=== PATIENT | female | born 1980 | race Caucasian/White ===

== ENCOUNTER 2017-01-12 14:48 | Emergency (ER) | payer OTHER ==
[2017-01-12 15:38] VITALS: BP 111/73
--- NOTE | 2017-01-12 16:20 | UC ---
Back Pain HPI - HPI Summary HPI Summary: tailbone pain which occurred after having a constipated BM which she had to dig out with her finger. Pain has worsened as days go by. Had some bright red blood streaked on paper yesterday, less today. No blood on underwear. Painful to sit, get up from chair, sit down. Has a history of anal fissure, feels like that's where blood is coming from now, but the tailbone pain is separate from the fissure discomfort. - History of Current Complaint Chief Complaint: UCGeneralIllness Stated Complaint: TAIL BONE PAIN Time Seen by Provider: 01/12/17 16:04 Hx Obtained From: Patient Hx Last Menstrual Period: 12/04/16 on BCP Onset/Duration: Sudden Onset, Lasting Days - 3 Timing: Constant Severity Initially: Mild Severity Currently: Moderate Back Pain: Is Discrete @ - coccyx Character: Sharp, Aching, Stiffness Aggravating: Movement - up and down from chair Alleviating: Position - standing Associated Signs And Symptoms: Positive: Pain with Weight Bearing. Negative: Swelling, Redness, Bruising, Fever, Weakness, Numbness, Tingling, Abdominal Pain - Risk Factors AAA Risk Factors: Negative TAD Risk Factors: Negative Cauda Equina Risk Factors: Negative Epidural Abscess Risk Factors: Negative - Allergies/Home Medications Allergies/Adverse Reactions: Allergies Allergy/AdvReac Type Severity Reaction Status Date / Time No Known Allergies Allergy Verified 01/12/17 15:38 Home Medications: Home Medications Amitriptyline TAB* [Elavil TAB*] 25 mg PO BEDTIME 01/12/17 [History Confirmed ] Drospirenone-Ethinyl Estradiol [Shruti 3-0.02 mg] 1 tab PO DAILY 01/12/17 [History Confirmed 01/12/17] Exenatide [Bydureon] 2 mg SC WEEKLY 01/12/17 [History Confirmed 01/12/17] Lactobacillus [Probiotic] 1 cap PO DAILY 01/12/17 [History Confirmed 01/12/17] Magnesium [Essential Magnesium] 250 mg PO DAILY 01/12/17 [History Confirmed ] Spironolactone [Aldactone 50 MG-] 50 mg PO BID 01/12/17 [History Confirmed 01/12] PMH/Surg Hx/FS Hx/Imm Hx Endocrine History Of: Comment Only: Diabetes - Pre Diabetes Cardiovascular History Of: Denies: Cardiac Disorders Respiratory History Of: Reports: Asthma GI/ History Of: Reports: Gall Bladder Disease - being evaluated for ruq pain Denies: Gastroesophageal Reflux - Surgical History Surgical History: None Surgery Procedure, Year, and Place: [place] teeth extraction, dental Implant 2014 , katelyn 12/11 - Family History Known Family History: Positive: None, Cardiac Disease, Hypertension, Diabetes - Social History Occupation: Employed Full-time Lives: With Family Alcohol Use: Occasionally Substance Use Type: None Smoking Status (MU): Never Smoked Tobacco Have You Smoked in the Last Year: No - Immunization History Most Recent Influenza Vaccination: [id number] Most Recent Tetanus Shot: 08/27/2012 Review of Systems Constitutional: Negative Skin: Negative Eyes: Negative ENT: Negative Respiratory: Negative Cardiovascular: Negative Gastrointestinal: Other - small amt Bright red blood on toilet tissue yesterday , less today Genitourinary: Negative Motor: Negative Neurovascular: Negative Musculoskeletal: Decreased ROM - walking stiffly, hard to get up from chair Neurological: Negative Psychological: Negative All Other Systems Reviewed And Are Negative: Yes Physical Exam Triage Information Reviewed: Yes Appearance: Well-Appearing, No Pain Distress, Well-Nourished Vital Signs: Initial Vital Signs Temp 98.1 F 01/12/17 15:32 Pulse 91 01/12/17 15:32 Resp 17 01/12/17 15:32 BP 111/73 01/12/17 15:32 Pulse Ox 99 01/12/17 15:32 Eye Exam: Normal Neck exam: Normal Respiratory Exam: Normal Cardiovascular Exam: Normal Musculoskeletal Exam: Other - marked tenderness on palpation over coccyx. No skin abnormalities, no redness, no swelling. No pilonidal cyst. Neurological Exam: Normal Psychological Exam: Normal Skin Exam: Normal Diagnostics - Laboratory Diagnostic Studies Completed/Ordered: XRay: no fracture or displacement Back Pain Course/Dx - Differential Dx/Diagnosis Provider Diagnoses: coccyx injury Discharge - Discharge Plan Condition: Stable Disposition: HOME Patient Education Materials: Coccyx Injury (ED) Referrals: LUCA Bhatti [Primary Care Provider] -
--- NOTE | 2017-01-12 17:01 | RAD ---
INDICATION: Pain after constipation COMPARISON: None TECHNIQUE: 2 views of the coccyx and sacrum were obtained FINDINGS: There are no acute osseous findings. The SI joints and symphysis are intact. There is moderate retained stool. IMPRESSION: MODERATE RETAINED STOOL.
== END 2017-01-12 17:29 | disposition home or self-care (01) ==
LOC: UCCORT 14:48
DX: M53.3 Sacrococcygeal disorders, not elsewhere classified (principal); K59.00 Constipation, unspecified; Z32.02 Encounter for pregnancy test, result negative
CPT/HCPCS: 72220; 81025; 99211; G0463

== ENCOUNTER 2017-01-19 16:47 | Emergency (ER) | payer OTHER ==
[2017-01-19 17:15] VITALS: BP 97/68
--- NOTE | 2017-01-19 17:50 | UC ---
Skin Complaint HPI - HPI Summary HPI Summary: worsening coccyx pain---feels a large lump near coccyx/rectum no fevers - History of Current Complaint Chief Complaint: UCBackPain Time Seen by Provider: 01/19/17 17:38 Stated Complaint: TAIL BONE PAIN/SKIN COMPLAINT Hx Obtained From: Patient Hx Last Menstrual Period: PCOS--MID NOVEMBER ?: No Onset/Duration: Gradual Onset, Lasting Days - 7, Still Present Timing: Constant Onset Severity: Moderate Current Severity: Moderate Pain Intensity: 7 Location: Discrete - near coccyx Character: Raised, Painful Aggravating: Touch Alleviating: Heat Associated Signs & Symptoms: Positive: Tenderness - Allergy/Home Medications Allergies/Adverse Reactions: Allergies Allergy/AdvReac Type Severity Reaction Status Date / Time No Known Allergies Allergy Verified 01/19/17 17:15 Home Medications: Home Medications Ibuprofen TAB* [Advil TAB*] 200 mg PO Q6H PRN 01/19/17 [History Confirmed ] Polyethylene Glycol 3350* [Miralax*] 17 gm PO DAILY PRN 01/19/17 [History Confirmed 01/19/17] Review of Systems Constitutional: Negative Skin: Other - firm abscess pilonidal /right buttock Eyes: Negative ENT: Negative Respiratory: Negative Cardiovascular: Negative Gastrointestinal: Negative Genitourinary: Negative Motor: Negative Neurovascular: Negative Musculoskeletal: Negative Neurological: Negative Psychological: Negative All Other Systems Reviewed And Are Negative: Yes PMH/Surg Hx/FS Hx/Imm Hx Previously Healthy: No - IBS Endocrine History Of: Comment Only: Diabetes - Pre Diabetes Cardiovascular History Of: Denies: Cardiac Disorders Respiratory History Of: Reports: Asthma GI/ History Of: Reports: Gall Bladder Disease - being evaluated for ruq pain Denies: Gastroesophageal Reflux - Surgical History Surgical History: None Surgery Procedure, Year, and Place: [place] teeth extraction, dental Implant 2014 , katelyn 12/11 - Family History Known Family History: Positive: None, Cardiac Disease, Hypertension, Diabetes - Social History Occupation: Employed Full-time Lives: Alone Alcohol Use: Occasionally Substance Use Type: None Smoking Status (MU): Never Smoked Tobacco Have You Smoked in the Last Year: No - Immunization History Most Recent Influenza Vaccination: [id number] Most Recent Tetanus Shot: 08/27/2012 Physical Exam Triage Information Reviewed: Yes Appearance: Well-Appearing, Well-Nourished, Pain Distress Vital Signs: Initial Vital Signs Temp 98.4 F 01/19/17 17:08 Pulse 99 01/19/17 17:08 Resp 20 01/19/17 17:08 BP 97/68 01/19/17 17:08 Pulse Ox 100 01/19/17 17:08 Vital Signs Reviewed: Yes Eye Exam: Normal Eyes: Positive: Conjunctiva Clear ENT Exam: Normal ENT: Positive: Normal ENT inspection, Hearing grossly normal, Pharynx normal. Negative: Nasal congestion, Nasal drainage, Trismus, Muffled/hoarse voice Neck exam: Normal Neck: Positive: Supple, Nontender, No Lymphadenopathy Respiratory Exam: Normal Respiratory: Positive: Chest non-tender, Lungs clear, Normal breath sounds, No respiratory distress, No accessory muscle use Cardiovascular Exam: Normal Cardiovascular: Positive: RRR, No Murmur, Pulses Normal, Brisk Capillary Refill Musculoskeletal Exam: Normal Musculoskeletal: Positive: Strength Intact, ROM Intact, No Edema Neurological Exam: Normal Neurological: Positive: Alert, Muscle Tone Normal Psychological Exam: Normal Skin: Positive: Other - pilonidal cyst with swelling in to right buttock--firm, not tenting, no fluctulant center Course/Dx - Course Course Of Treatment: heat/sitz bath pain control, bactrim , follow with surgeon on Sunday or return should cyst soften and be able I&D - Differential Diagnoses - Skin Complaint Differential Diagnoses: Abscess, Cellulitis, Contact Dermatitis - Diagnoses Provider Diagnoses: Pilonidal Cyst Discharge - Discharge Plan Condition: Stable Disposition: HOME Prescriptions: HYDROcodone/ACETAMIN 5-325 MG* [[place] 5-325 TAB*] 1 - 2 tab PO Q6H PRN #20 tab MDD 6 PRN Reason: pain Misc. Devices [Sitz Bath] 1 mis XX QID #1 mis Sulfamethox/Trimethoprim DS* [Bactrim DS 800/160 TAB*] 1 tab PO BID #20 tab Patient Education Materials: Pilonidal Cyst (GEN), Sitz Bath (GEN), Heat Pack Application (ED) Referrals: Johnathan Baires [Medical Doctor] - 3 Days LUCA Oneill [Primary Care Provider] - Oscar Orona MD [Medical Doctor] - 3 Days
== END 2017-01-19 18:09 | disposition home or self-care (01) ==
LOC: UCCORT 16:47
DX: L05.91 Pilonidal cyst without abscess (principal)
CPT/HCPCS: 99212; G0463

== ENCOUNTER 2017-02-13 16:52 | Emergency (ER) | payer OTHER ==
[2017-02-13 17:23] VITALS: BP 112/81
--- NOTE | 2017-02-13 17:42 | UC ---
Abdominal Pain Female HPI - HPI Summary HPI Summary: The patient comes in today for: 1. Abdominal pain (right lower quadrant): Onset: 5 days. Palliative/provocative: Laying down makes it better. It gets worse during the day. It gets better at night. Quality: Sharp pain "Like an alien is trying to dig into my stomach." Region: Right upper quadrant. Severity: 4/10 at this time, but the worse was 6/10. Time: Constant, but severity comes and goes. Associated symptoms: Fever: None. Nausea: She can eat in the morning, but by dinner, she is not able to eat. Nausea is worse after eating. Vomiting: None. Previous disease: She had her gallbladder removed in November of 2015. Previous treatment: She has been seeing a GI specialist on and off the last 2 years for IBS. Patient states this pain is different in character and location. Bowel habits: NO change. Rectal bleeding: She had blood "around the bowel movement" with today's BM. She states she had an anal fissure diagnosed about 6 months ago. Her stooling bounces between hard and no bowel movements. She comes in to see us today "...just to make sure that this is not anything serious." * - History of Current Complaint Chief Complaint: UCAbdominalPain Stated Complaint: ABDOMINAL PAIN Time Seen by Provider: 02/13/17 17:35 Hx Obtained From: Patient Hx Last Menstrual Period: 02/09/17 ?: No Allergies/Adverse Reactions: Allergies Allergy/AdvReac Type Severity Reaction Status Date / Time No Known Allergies Allergy Verified 02/13/17 17:10 PMH/Surg Hx/FS Hx/Imm Hx Previously Healthy: No - PCOS, Constipation, IBS, Anal fissues, Allergies, family planning. Endocrine History Of: Reports: Diabetes - PPre Diabetes Denies: Thyroid Disease, Hyperthyroidism, Hypothyroidism, Dyslipidemia Cardiovascular History Of: Denies: Cardiac Disorders, Hypertension, Pacemaker/ICD, Myocardial Infarction , Congestive Heart Failure, Atrial Fibrillation, Deep Vein Thrombosis, Bleeding Disorders Respiratory History Of: Reports: Asthma Denies: COPD, Bronchitis, Pneumonia, Pulmonary Embolism GI/ History Of: Reports: Gall Bladder Disease - being evaluated for ruq pain Denies: Gastroesophageal Reflux, Ulcer, Gastrointestinal Bleed, Kidney Stones , Diverticulitis, Renal Disease, Urosepsis Neurological History Of: Denies: TIA, CVA, Dementia, Seizures, Migraine Psychological History Of: Denies: Anxiety, Depression, Bipolar Disorder, Schizophrenia, Post Traumatic Stress Disorder Cancer History Of: Denies: Lung Cancer, Colorectal Cancer, Breast Cancer, Prostate Cancer, Cervical Cancer Other History Of: Negative For: HIV, Hepatitis B, Hepatitis C, Anticoagulant Therapy - Surgical History Surgical History: None Surgery Procedure, Year, and Place: [place] teeth extraction, dental Implant 2014 , katelyn 12/11 - Family History Known Family History: Positive: None, Cardiac Disease, Hypertension, Diabetes - Social History Occupation: Employed Full-time Alcohol Use: Occasionally Substance Use Type: None Smoking Status (MU): Never Smoked Tobacco Have You Smoked in the Last Year: No - Immunization History Most Recent Influenza Vaccination: [id number] Most Recent Tetanus Shot: 08/27/2012 Review of Systems Constitutional: Negative Skin: Negative Eyes: Negative ENT: Negative Respiratory: Negative Cardiovascular: Negative Gastrointestinal: Abdominal Pain Genitourinary: Negative Musculoskeletal: Arthralgia, Myalgia All Other Systems Reviewed And Are Negative: Yes Physical Exam Triage Information Reviewed: Yes Appearance: Well-Appearing, No Pain Distress - Sitting, she is very comfortable looking., Well-Nourished Vital Signs: Initial Vital Signs Temp 98.4 F 02/13/17 17:14 Pulse 90 02/13/17 17:14 Resp 18 02/13/17 17:14 BP 112/81 02/13/17 17:14 Pulse Ox 99 02/13/17 17:14 Vital Signs Reviewed: Yes Eyes: Positive: Conjunctiva Clear. Negative: Discharge ENT: Positive: Hearing grossly normal. Negative: Pharyngeal erythema, Nasal congestion, TM bulging, TM dull, TM red, Tonsillar swelling, Tonsillar exudate Dental: Negative: Gross Decay/Caries @, Dental Fracture @ Neck: Positive: Supple, Nontender, No Lymphadenopathy. Negative: Nuchal Rigidity Respiratory: Positive: Lungs clear, No respiratory distress, No accessory muscle use. Negative: Crackles, Wheezing Cardiovascular: Positive: RRR, No Murmur Abdomen Description: Positive: No Organomegaly, Soft. Negative: Nontender - She has tenderness to the right of the umbilicus. There is no rebound, nor percussion tenderness, but there is worsening of her pain with deep palpation., CVA Tenderness (L), Distended, Guarding, Peritoneal Signs Musculoskeletal: Positive: Strength Intact, ROM Intact Neurological: Positive: Alert, Muscle Tone Normal Psychological: Positive: Age Appropriate Behavior, Consolable Skin: Negative: rashes, breakdown Abd Pain Female Course/Dx - Course Course Of Treatment: The patient was told that I was not able to make an exact diagnosis for the cause of their abdominal pain. Further, the patient was told that many things can cause this type of pain--some benign and some life- threatening. Also, the patient was told that some of these life-threatening conditions may present with minimal symptoms or in. atypical ways. Based on all of this, if the patient wants a more indepth evaluation, she would have to go to the ER. She is very concerned about this pain and wants to do this. - Differential Dx/Diagnosis Differential Diagnosis: Constipation Provider Diagnoses: ABdominal pain. HIstory of constipation. History of irritable bowel disease. - Physician Notification/Consults Discussed Patient Care With: Danna Sheth Time Discussed With Above Provider: 18:01 Discharge - Discharge Plan Condition: Stable Disposition: AGAINST MEDICAL ADVICE Additional Instructions: patient sent to [facility] via private car.
== END 2017-02-13 18:04 | disposition left against medical advice (07) ==
LOC: UCCORT 16:52
DX: R10.31 Right lower quadrant pain (principal); R11.0 Nausea; Z90.49 Acquired absence of other specified parts of digestive tract
CPT/HCPCS: 99212; G0463

== ENCOUNTER 2017-08-11 18:51 | Emergency (ER) | payer OTHER ==
[2017-08-11 19:01] VITALS: BP 108/71
--- NOTE | 2017-08-11 19:20 | UC ---
Throat Pain/Nasal Salomon HPI - HPI Summary HPI Summary: 37 y/o female presents to the urgent care c/o sore throat and dry cough since this morning. She also has felt mild chills and mild MONTEJO during the day. She has not taking anything to alleviate symptoms. PT states she was at a football game yesterday where a lot of people were coughing near her. Pt denies nasal congestion,fever, SOB, chest pain, N/V/D - History of Current Complaint Chief Complaint: UCRespiratory Stated Complaint: THROAT PAIN Time Seen by Provider: 08/11/17 19:12 Hx Obtained From: Patient Hx Last Menstrual Period: 6 WEEKS AGO ?: No Onset/Duration: Gradual Onset, Lasting Hours - since this morning, Still Present Severity: Mild Pain Intensity: 2 Pain Scale Used: 0-10 Numeric Cough: Nonproductive Associated Signs & Symptoms: Positive: Dysphagia. Negative: Hoarseness, Sinus Discomfort, Nasal Discharge, Fever, Vomiting - Epiglottits Risk Factors Epiglottis Risk Factors: Negative - Allergies/Home Medications Allergies/Adverse Reactions: Allergies Allergy/AdvReac Type Severity Reaction Status Date / Time SEASONAL ALLERGIES Allergy Severe CONGESTION, Uncoded 08/11/17 19:02 RUNNY NOSE Home Medications: Home Medications Acetaminophen TAB* [Tylenol TAB*] 325 mg PO PRN 08/11/17 [History] PMH/Surg Hx/FS Hx/Imm Hx Previously Healthy: Yes Endocrine History: Diabetes - PRE DM Other Endocrine History: PCOS Respiratory History: Asthma Other History Of: Negative For: HIV, Hepatitis B, Hepatitis C, Anticoagulant Therapy - Surgical History Surgical History: Yes Surgery Procedure, Year, and Place: [place] teeth extraction, dental Implant 2014 , katelyn 12/11 - Family History Known Family History: Positive: Cardiac Disease, Hypertension, Diabetes - Social History Occupation: Employed Full-time Lives: With Family Alcohol Use: Occasionally Substance Use Type: None Smoking Status (MU): Never Smoked Tobacco Have You Smoked in the Last Year: No - Immunization History Most Recent Influenza Vaccination: [id number] Most Recent Tetanus Shot: 08/27/2012 Review of Systems Constitutional: Negative, Chills - during the day Skin: Negative Eyes: Negative ENT: Sore Throat Respiratory: Cough - dry Cardiovascular: Negative Gastrointestinal: Negative Genitourinary: Negative Motor: Negative Neurovascular: Negative Musculoskeletal: Negative Neurological: Negative Psychological: Negative Is Patient Immunocompromised?: No All Other Systems Reviewed And Are Negative: Yes Physical Exam Triage Information Reviewed: Yes Appearance: Well-Appearing, No Pain Distress, Well-Nourished, Obese Vital Signs: Initial Vital Signs Temp 97.7 F 08/11/17 18:59 Pulse 74 08/11/17 18:59 Resp 16 08/11/17 18:59 BP 108/71 08/11/17 18:59 Pulse Ox 98 08/11/17 18:59 Vital Signs Reviewed: Yes Eye Exam: Normal Eyes: Positive: Conjunctiva Clear - PERRLA, EOMI ENT: Positive: Normal ENT inspection, Hearing grossly normal, Pharyngeal erythema - with palate pethechia, no exudate, TMs normal, Tonsillar swelling. Negative: Nasal congestion, Nasal drainage, Tonsillar exudate Neck exam: Normal Neck: Positive: Supple, Nontender, No Lymphadenopathy Respiratory Exam: Normal Respiratory: Positive: Chest non-tender, Lungs clear, Normal breath sounds, No respiratory distress Cardiovascular Exam: Normal Cardiovascular: Positive: RRR, No Murmur, Pulses Normal Abdominal Exam: Normal Abdomen Description: Positive: Nontender, No Organomegaly, Soft. Negative: CVA Tenderness (R), CVA Tenderness (L) Bowel Sounds: Positive: Present Musculoskeletal Exam: Normal Musculoskeletal: Positive: Strength Intact, ROM Intact, No Edema Neurological Exam: Normal Psychological Exam: Normal Skin Exam: Normal Throat Pain/Nasal Course/Dx - Course Course Of Treatment: 37 y/o female presents to the urgent care c/o sore throat and dry cough since this morning. She also has felt mild chills and mild MONTEJO during the day. She has not taking anything to alleviate symptoms. PT states she was at a football game yesterday where a lot of people were coughing near her. Pt denies fever, nasal congestion, SOB, chest pain, N/V/D HX obtaeined. Rapid strep ordered, result: negative. Pt with Viral pharyngitis. Pt given Ibuprofen PO at the clinic to alleviate symptoms since pharmacy is closed. Pt tollerated well medication. Rx Ibuprofen PO and advise eat well, rest, increase fluid intake, avoid strenuous exercise, and If symptoms do not improve or worsen please return to the urgent care or f/u with your PCP for further evaluation and treatment. Pt undersood and agreed with plan of care. - Differential Dx/Diagnosis Differential Diagnosis/HQI/PQRI: Influenza, Laryngitis, Mononucleosis, Otitis Media, Pharyngitis, Tonsillitis, URI Provider Diagnoses: 1- viral pharyngitis Discharge - Discharge Plan Condition: Stable Disposition: HOME Prescriptions: Ibuprofen TAB* [Motrin TAB* 800 MG] 800 mg PO Q6H #30 tab Patient Education Materials: Pharyngitis (ED) Referrals: LUCA Bhatti [Primary Care Provider] - If Needed Additional Instructions: 1-Please take ibuprofen PO q6-8hrs prn as instructed after meals to alleviate pain and swelling. Eat well, rest , increase fluid intake, avoid strenuous exercise 2-If symptoms do not improve or worsen please return to the urgent care or f/u with your PCP for further evaluation and treatment.
[2017-08-11] MEDS ORDERED: Ibuprofen TAB* 400 MG PO ONE (19:39)
== END 2017-08-11 19:57 | disposition home or self-care (01) ==
LOC: UCEAST 18:51
DX: J02.9 Acute pharyngitis, unspecified (principal); R73.03 Prediabetes; E28.2 Polycystic ovarian syndrome; J45.909 Unspecified asthma, uncomplicated; Z90.49 Acquired absence of other specified parts of digestive tract
CPT/HCPCS: 87651; 99212; A9270-GY; G0463

== ENCOUNTER 2017-11-21 13:01 | Emergency (ER) | payer OTHER ==
[2017-11-21 14:01] VITALS: BP 110/59
--- NOTE | 2017-11-21 14:23 | UC ---
Throat Pain/Nasal Salomon HPI - HPI Summary HPI Summary: Pt presents with sinus congestion, ST, dry cough, and hoarseness that started 2 days ago. She has been taking a cold a flu medication with no relief. She denies fever, chills, SOB, chest pain, abdominal pain, N/V/D/C - History of Current Complaint Chief Complaint: UCRespiratory Stated Complaint: CONGESTION/COUGH/ST Time Seen by Provider: 11/21/17 14:03 Hx Obtained From: Patient Hx Last Menstrual Period: 10/25/17 Onset/Duration: Gradual Onset Severity: Mild - Allergies/Home Medications Allergies/Adverse Reactions: Allergies Allergy/AdvReac Type Severity Reaction Status Date / Time SEASONAL ALLERGIES Allergy Severe CONGESTION, Uncoded 11/21/17 13:53 RUNNY NOSE Home Medications: Home Medications Doxylamine-Dm [Nite Time Cough] 1 liq PO QID PRN 11/21/17 [History Confirmed ] Ibuprofen TAB* [Motrin TAB* 800 MG] 800 mg PO Q6H PRN 11/21/17 [History Confirmed 11/21/17] PMH/Surg Hx/FS Hx/Imm Hx - Additional Past Medical History Additional PMH: PCOS Other History Of: Negative For: HIV, Hepatitis B, Hepatitis C, Anticoagulant Therapy - Surgical History Surgical History: Yes Surgery Procedure, Year, and Place: [place] teeth extraction, dental Implant 2014 , katelyn 12/11 - Family History Known Family History: Positive: None, Cardiac Disease, Hypertension, Diabetes - Social History Occupation: Employed Full-time Lives: With Family Alcohol Use: Occasionally Substance Use Type: None Smoking Status (MU): Never Smoked Tobacco Have You Smoked in the Last Year: No - Immunization History Most Recent Influenza Vaccination: does not think so Most Recent Tetanus Shot: 08/27/2012 Review of Systems Constitutional: Negative Skin: Negative Eyes: Negative ENT: Sore Throat, Nasal Discharge, Sinus Congestion, Sinus Pain/Tenderness Respiratory: Cough Cardiovascular: Negative Gastrointestinal: Negative All Other Systems Reviewed And Are Negative: Yes Physical Exam Triage Information Reviewed: Yes Appearance: Well-Appearing, Well-Nourished Vital Signs: Initial Vital Signs Temp 98.1 F 11/21/17 13:56 Pulse 83 11/21/17 13:56 Resp 18 11/21/17 13:56 BP 110/59 11/21/17 13:56 Pulse Ox 99 11/21/17 13:56 Vital Signs Reviewed: Yes Eyes: Positive: Conjunctiva Clear. Negative: Conjunctiva Inflamed, Discharge ENT: Positive: Hearing grossly normal, Pharynx normal, Nasal congestion, TMs normal, Hoarse voice, Uvula midline. Negative: Pharyngeal erythema, Nasal drainage, TM bulging, TM dull, TM red, Tonsillar swelling, Tonsillar exudate, Sinus tenderness Neck: Positive: Supple, Nontender, No Lymphadenopathy Respiratory: Positive: Chest non-tender, Lungs clear, Normal breath sounds, No respiratory distress, No accessory muscle use Cardiovascular: Positive: RRR, No Murmur, Pulses Normal Neurological: Positive: Alert. Negative: Fatigued Psychological: Positive: Age Appropriate Behavior Skin: Negative: rashes Throat Pain/Nasal Course/Dx - Course Course Of Treatment: POC strep and flu negative. Discussed with patient that this is likely viral and will take a few days to improve. She does have a history of "asthma-like trouble" as a child. Advised conservative measures and will rx for tessalon and albuterol inhaler. No indication for antibiotic at this time. - Differential Dx/Diagnosis Provider Diagnoses: Cough. Sinus congestion Discharge - Discharge Plan Condition: Stable Disposition: HOME Prescriptions: Albuterol HFA INHALER* [Ventolin HFA Inhaler*] 1 - 2 puff INH Q6HR PRN #1 mdi PRN Reason: Sob/Wheezing Benzonatate CAP* [Tessalon 100 MG CAP*] 100 mg PO TID PRN #21 cap PRN Reason: Cough Patient Education Materials: Acute Bronchitis (ED) Forms: *Work Release Referrals: LUCA Bhatti [Primary Care Provider] - Additional Instructions: If you develop a fever, SOB, chest pain, new or worsening symptoms - please call your PCP or go to the ED. 1) May take plain Mucinex OTC twice a day as an expectorant to help relief congestion.
== END 2017-11-21 14:41 | disposition home or self-care (01) ==
LOC: UCCORT 13:01
DX: R05 Cough (principal); J34.89 Other specified disorders of nose and nasal sinuses; Z72.89 Other problems related to lifestyle
CPT/HCPCS: 87502; 87651; 99212; G0463

== ENCOUNTER 2018-01-02 09:33 | Emergency (ER) | payer OTHER ==
--- NOTE | 2018-01-02 12:42 | UC ---
Respiratory Complaint HPI - HPI Summary HPI Summary: Cough, congestion, achiness for 1-2 days. She is generally healthy and denies chronic lung disease. - History of Current Complaint Stated Complaint: MONTEJO,SINUSES,ELLIOT,JOINT PAIN Time Seen by Provider: 01/02/18 12:34 Hx Obtained From: Patient Hx Last Menstrual Period: 10/25/17 Onset/Duration: Gradual Onset, Lasting Days Severity Initially: Moderate Severity Currently: Moderate Character: Cough: Nonproductive Aggravating Factors: Deep Breaths, Recumbent Position Alleviating Factors: Upright Position, Spontaneous Resolution Associated Signs And Symptoms: Positive: Chills, URI, Nasal Congestion - Allergies/Home Medications Allergies/Adverse Reactions: Allergies Allergy/AdvReac Type Severity Reaction Status Date / Time SEASONAL ALLERGIES Allergy Severe CONGESTION, Uncoded 01/02/18 12:39 RUNNY NOSE Home Medications: Home Medications Multivitamin [Multiple Vitamins] 1 tab PO DAILY 01/02/18 [History Confirmed 06/12] PMH/Surg Hx/FS Hx/Imm Hx Previously Healthy: No - PCOS. Other History Of: Negative For: HIV, Hepatitis B, Hepatitis C, Anticoagulant Therapy - Surgical History Surgical History: Yes Surgery Procedure, Year, and Place: [place] teeth extraction, dental Implant 2014 , katelyn 12/11 - Family History Known Family History: Positive: None, Cardiac Disease, Hypertension, Diabetes - Social History Alcohol Use: Occasionally Substance Use Type: None Smoking Status (MU): Never Smoked Tobacco Have You Smoked in the Last Year: No - Immunization History Most Recent Influenza Vaccination: does not think so Most Recent Tetanus Shot: 08/27/2012 Review of Systems Constitutional: Chills ENT: Sinus Congestion Respiratory: Cough Musculoskeletal: Arthralgia All Other Systems Reviewed And Are Negative: Yes Physical Exam Triage Information Reviewed: Yes Appearance: Well-Appearing, No Pain Distress, Well-Nourished Vital Signs Reviewed: Yes Eyes: Positive: Conjunctiva Clear ENT: Positive: Normal ENT inspection, Pharyngeal erythema, Nasal congestion, TMs normal, Uvula midline. Negative: Nasal drainage, TM bulging, TM dull, TM red, Tonsillar swelling, Tonsillar exudate, Trismus, Sinus tenderness Neck: Positive: Supple, Nontender, No Lymphadenopathy Respiratory: Positive: Chest non-tender, Lungs clear, Normal breath sounds, No respiratory distress, No accessory muscle use. Negative: Respiratory distress, Decreased breath sounds, Accessory muscle use, Crackles, Rhonchi, Stridor Cardiovascular: Positive: RRR, No Murmur, Pulses Normal Abdomen Description: Positive: Nontender, No Organomegaly, Soft. Negative: Distended, Guarding Musculoskeletal: Positive: Strength Intact, ROM Intact, No Edema Neurological: Positive: Alert, Muscle Tone Normal. Negative: Fatigued Psychological: Positive: Age Appropriate Behavior Skin: Negative: rashes Respiratory Course/Dx - Differential Dx/Diagnosis Provider Diagnoses: uri. viral illness. Discharge - Discharge Plan Condition: Good Disposition: HOME Patient Education Materials: Upper Respiratory Infection (ED) Referrals: LUCA Bhatti [Primary Care Provider] -
[2018-01-02 12:46] VITALS: BP 100/78
== END 2018-01-02 13:41 | disposition home or self-care (01) ==
LOC: UCCORT 09:33
DX: J06.9 Acute upper respiratory infection, unspecified (principal)
CPT/HCPCS: 87502; 99211; G0463

== ENCOUNTER 2018-07-04 16:42 | Emergency (ER) | payer OTHER ==
--- OUTSIDE RECORDS SUMMARY | 2018-07-04 17:00 | XMS REPORT ---
:1980 External Reference #:[id number] Author Organization [employer] Address [address] [place] [id number] Phone [phone] Care Team Providers Name Role Phone Connie Li MD Primary Care Physician Unavailable Payers Type Date Identification Numbers Payment Provider Subscriber Commercial Policy Number: [id number] Lifetime Benefit Melina Red[employer] Group Number: [id number] [address] [address] PayID: [facility] [place] [address] Problems Description No Information Family History Date Family Member(s) Problem(s) Comments General Stroke General Hypertension General [place] General Diabetes Type II General Chronic Obstructive Pulmonary Disease (COPD) Father Unknown Mother Stroke Mother [place] Mother Diabetes Type II Social History Type Date Description Comments Marital Status 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 Cigarette Use Never Smoked Cigarettes ETOH Use Drinks Alcoholic Beverages Occasionally Smoking Patient has never smoked Recreational Drug Use Denies Drug Use Daily Caffeine Consumes on average 2 cups of regular coffee per day Exercise Type/Frequency Exercises regularly Allergies, Adverse Reactions, Alerts Date Description Reaction Status Severity Comments 01/22/2017 NKDA active Medications Medication Date Status Form Strength Qnty SIG Indications Ordering Provider Advil / Active Capsules 200mg as needed Unknown 0000 Shruti / Active Tablets 3-0.02mg 1 by mouth Unknown 0000 every day Spironolactone / Active Tablets 50mg 1 by mouth Unknown 0000 every day Amitriptyline / Active Tablets 25mg 1 by mouth Unknown HCL 0000 every night at bedtime Bydureon / Active Pen 2mg inject 2 mg Unknown 0000 sc weekly Miralax / Hx Powder 3350NF 17 gm every Unknown 0000 - day mixed 06/02/ w/ 8 oz 2018 water/juice as needed Aldactone / Hx Tablets 50mg 1 by mouth Unknown 0000 every day Glucophage / Hx Tablets 500mg 1 tab by Unknown 0000 mouth twice a day 30 minutes before meal breakfast and dinner twice a day (not taking) Magnesium / Hx Tablets 250mg 1 by mouth Unknown 0000 every day Probiotic Daily / Hx Capsules 1 by mouth Unknown 0000 - every day 2017 Bactrim DS / Hx Tablets 800-160mg 1 by mouth Unknown 0000 twice a day Hydrocodone-Acet / Hx Tablets 5-325mg 1-2 tabs by Unknown aminophen 0000 mouth every 4- 6 hours as needed pain Vital Signs Date Vital Result Comment 06/25/2018 Height 66 inches 5'6" Weight 215.00 lb Heart Rate 70 /min BP Systolic Sitting 110 mmHg BP Diastolic Sitting 68 mmHg Respiratory Rate 18 /min Pain Level 2 BMI (Body Mass Index) 34.7 kg/m2 04/03/2017 Heart Rate 66 /min BP Systolic 102 mmHg BP Diastolic 70 mmHg Respiratory Rate 16 /min Body Temperature 97.1 F 01/31/2017 Heart Rate 72 /min BP Systolic 118 mmHg BP Diastolic 80 mmHg Respiratory Rate 16 /min Body Temperature 98.3 F 01/29/2017 Heart Rate 102 /min Respiratory Rate 18 /min Body Temperature 99.0 F 01/26/2017 Heart Rate 60 /min Respiratory Rate 18 /min Body Temperature 98.6 F 01/25/2017 Heart Rate 62 /min Respiratory Rate 16 /min Body Temperature 98.0 F 01/24/2017 Heart Rate 74 /min Respiratory Rate 16 /min Body Temperature 98.5 F 01/23/2017 Height 67 inches 5'7" Weight 230.00 lb Heart Rate 72 /min BP Systolic 116 mmHg BP Diastolic 70 mmHg Respiratory Rate 18 /min Body Temperature 97.1 F BMI (Body Mass Index) 36.0 kg/m2 Results Description No Information Procedures Date CPT Code Description Status 06/25/2018 35989 Inject Tendon Sheath Or Ligament Aponeurosis Eg Plantar Completed Fascia 01/23/2017 93218 I&D Of Abscess Complicated Completed Encounters Type Date Location Provider CPT E/M Dx Office Visit 04/03/2017 [facility], [address] L05.01 9:00a Lissy CROWELL Plan of Care Future Appointment(s):07/11/2018 2:00 pm - Austin Mishra MD at [facility] AT [id number]/31/2018 - Austin Mishra, [id number] Strain of flexor musc/fasc/tend at forarm lv, left arm, initFollow up:Follow up: 2 weeks
[2018-07-04 17:10] VITALS: BP 120/83
--- NOTE | 2018-07-04 17:56 | UC ---
UC General HPI - HPI Summary HPI Summary: 38-year-old female history of prediabetes and PCOS presents with 4-5 day history of bilateral cramping of her calves. States the cramping is most pronounced while at rest. He doesn't notice when she is up and ambulating. It is associated with profound fatigue, daily frontal headaches, and some general malaise. She reports that she is currently working less than 4 hours a day and feeling exhausted even after very little exertion. States her headaches will last 1-2 hours and subsided on their own. She has tried [id number] analgesics but feels that these have not made any difference headaches. Denies fever, chills, chest pain, shortness of breath, abdominal pain, nausea, vomiting , diarrhea, urinary symptoms, erythema or swelling of the lower extremities or known tick bites. - History of Current Complaint Chief Complaint: UCGeneralIllness Stated Complaint: JOINT PAIN, HEADACHE, AICHA LEG CONCERNS Time Seen by Provider: 07/04/18 17:27 Hx Obtained From: Patient Hx Last Menstrual Period: 05/01/18 Onset/Duration: Gradual Onset, Lasting Days Onset Severity: Mild Current Severity: Mild Pain Intensity: 2 Associated Signs & Symptoms: Positive: Headache. Negative: Abdominal Pain, Cough, Chest Pain, Diarrhea, Dysuria, Edema, Fever, Hemoptysis, Nausea, Palpitations, Recent Medication Changes, SOB, Trauma, Vomiting, Weakness - Allergy/Home Medications Allergies/Adverse Reactions: Allergies Allergy/AdvReac Type Severity Reaction Status Date / Time SEASONAL ALLERGIES Allergy Severe CONGESTION, Uncoded 07/04/18 17:03 RUNNY NOSE PMH/Surg Hx/FS Hx/Imm Hx Previously Healthy: Yes Endocrine History: Diabetes, Other - PCOS Other Endocrine History: PCOS Respiratory History: Asthma Other History Of: Negative For: HIV, Hepatitis B, Hepatitis C, Anticoagulant Therapy - Surgical History Surgical History: Yes Surgery Procedure, Year, and Place: [place] teeth extraction, dental Implant 2014 , katelyn 12/11 - Family History Known Family History: Positive: Cardiac Disease, Hypertension, Diabetes - Social History Occupation: Employed Full-time Lives: Alone Alcohol Use: Occasionally Substance Use Type: None Smoking Status (MU): Never Smoked Tobacco Have You Smoked in the Last Year: No - Immunization History Most Recent Influenza Vaccination: does not think so Most Recent Tetanus Shot: 08/27/2012 Review of Systems Constitutional: Fatigue Skin: Negative Respiratory: Negative Cardiovascular: Negative Motor: Negative Neurovascular: Negative Musculoskeletal: Myalgia Neurological: Negative Is Patient Immunocompromised?: No All Other Systems Reviewed And Are Negative: Yes Physical Exam Triage Information Reviewed: Yes Appearance: Well-Appearing, No Pain Distress, Well-Nourished Vital Signs: Initial Vital Signs Temp 97.9 F 07/04/18 17:05 Pulse 91 07/04/18 17:05 Resp 16 07/04/18 17:05 BP 120/83 07/04/18 17:05 Pulse Ox 98 07/04/18 17:05 Vital Signs Reviewed: Yes ENT: Positive: Normal ENT inspection Neck: Positive: Supple, Nontender, No Lymphadenopathy Respiratory: Positive: Lungs clear, Normal breath sounds, No respiratory distress Cardiovascular: Positive: RRR, No Murmur, Pulses Normal, Brisk Capillary Refill Musculoskeletal: Positive: Strength Intact, ROM Intact, No Edema Neurological: Positive: Muscle Tone Normal Skin Exam: Normal Course/Dx - Course Course Of Treatment: 38 year old female with complaints of fatigue and cramping in bilateral calves. History and physical were unremarkable. Labs for CBC, BMP, CRP, and Lyme titer were ordered however these were not obtained due to difficulties with the phlebotomy. Based on H&P, I do not feel that symptoms require emergent evaluation at this time. Patient was encouraged to follow up with PCP within 3 days for follow up and outpatient labs. Verbalizes understanding and agrees with POC. - Differential Dx - Multi-Symptom Provider Diagnoses: Bilateral leg cramps, fatigue Discharge - Sign-Out/Discharge Documenting (check all that apply): Patient Departure - Discharge Plan Condition: Stable Disposition: HOME Patient Education Materials: Fatigue (ED), Muscle Cramp (ED) Referrals: Jaime Han PA [Primary Care Provider] - 3 Days Additional Instructions: Your exam in the clinic today did not reveal a cause for your symptoms. We were unable to draw the lab work including a complete blood count, some electrolytes, serum markers for inflammation, and a test for Lyme disease to evaluate for possible causes so I would recommend that you see your primary care provider as soon as possible to have these and any other test he/she may want to obtain. Make sure you're getting plenty of sleep. Try performing some gentle stretching exercises of her calves which were provided to you. Seek immediate medical attention in the emergency room if he developed any fever greater than 100.5 F, have any chest pain, feeling as if her heart is racing or skipping beats, become short of breath, have any redness or swelling of her lower extremities, or any worsening of her symptoms. - Billing Disposition and Condition Condition: STABLE Disposition: Home
== END 2018-07-04 18:40 | disposition home or self-care (01) ==
LOC: UCCORT 16:42
DX: R25.2 Cramp and spasm (principal); R53.83 Other fatigue; R73.03 Prediabetes
CPT/HCPCS: 99211; G0463

== ENCOUNTER 2019-01-10 17:26 | Emergency (ER) | payer BC, OTHER ==
[2019-01-10 18:42] VITALS: BP 102/74
--- NOTE | 2019-01-10 19:12 | UC ---
FLU HPI - HPI Summary HPI Summary: Pt c/o flu like symptoms of body aches, nasal congestion and cough X 12 days. - History of Current Complaint Chief Complaint: UCGeneralIllness Stated Complaint: FLU SYMPTOMS Time Seen by Provider: 01/10/19 18:52 Hx Obtained From: Patient Hx Last Menstrual Period: has PCOS/on BCP ?: No Onset/Duration: Gradual Onset, Lasting Days, Still Present Severity Currently: Mild Severity Initially: Mild Pain Intensity: 0 Associated Signs & Symptoms: Positive: Myalgia, Cough, Nasal Congestion Related Hx: Possible Flu/Infectious Exposure - Risk Factors Influenza Risk Factors: Negative - Allergy/Home Medications Allergies/Adverse Reactions: Allergies Allergy/AdvReac Type Severity Reaction Status Date / Time SEASONAL ALLERGIES Allergy Severe CONGESTION, Uncoded 01/10/19 18:42 RUNNY NOSE PMH/Surg Hx/FS Hx/Imm Hx Previously Healthy: Yes Other History Of: Negative For: HIV, Hepatitis B, Hepatitis C, Anticoagulant Therapy - Surgical History Surgical History: Yes Surgery Procedure, Year, and Place: [place] teeth extraction, dental Implant 2014 , katelyn 12/11 - Family History Known Family History: Positive: None, Cardiac Disease, Hypertension, Diabetes - Social History Occupation: Employed Full-time Lives: With Family Alcohol Use: Occasionally Substance Use Type: None Smoking Status (MU): Never Smoked Tobacco Have You Smoked in the Last Year: No - Immunization History Most Recent Influenza Vaccination: does not think so Most Recent Tetanus Shot: 08/27/2012 Review of Systems All Other Systems Reviewed And Are Negative: Yes Constitutional: Positive: Chills, Fatigue Skin: Positive: Negative Eyes: Positive: Negative ENT: Positive: Sinus Congestion Respiratory: Positive: Cough Cardiovascular: Positive: Negative Gastrointestinal: Positive: Negative Genitourinary: Positive: Negative Motor: Positive: Negative Neurovascular: Positive: Negative Musculoskeletal: Positive: Myalgia Neurological: Positive: Negative Psychological: Positive: Negative Is Patient Immunocompromised?: No Physical Exam Triage Information Reviewed: Yes Appearance: Well-Appearing Vital Signs: Initial Vital Signs Temp 97.1 F 01/10/19 18:38 Pulse 95 01/10/19 18:38 Resp 16 01/10/19 18:38 BP 102/74 01/10/19 18:38 Pulse Ox 99 01/10/19 18:38 Vital Signs Reviewed: Yes Eye Exam: Normal ENT: Positive: Nasal congestion Dental Exam: Normal Neck exam: Normal Respiratory Exam: Normal Cardiovascular Exam: Normal Musculoskeletal Exam: Normal Neurological Exam: Normal Psychological Exam: Normal Skin Exam: Normal Flu Course/Dx - Differential Dx/Diagnosis Differential Diagnosis/HQI/PQRI: Influenza, Upper Respiratory Infection Provider Diagnosis: Viral syndrome Discharge - Sign-Out/Discharge Documenting (check all that apply): Patient Departure All imaging exams completed and their final reports reviewed: No Studies - Discharge Plan Condition: Stable Disposition: HOME Patient Education Materials: Viral Syndrome (ED) Referrals: Jaime Han PA [Primary Care Provider] - If Needed - Billing Disposition and Condition Condition: STABLE Disposition: Home - Attestation Statements Provider Attestation: Per institutional requirements, I have reviewed the chart, however, I was not consulted specifically or made aware of this patient by the midlevel provider. I did not personally evaluate, interact with , or disposition this patient.
== END 2019-01-10 19:17 | disposition home or self-care (01) ==
LOC: UCCORT 17:26
DX: B34.9 Viral infection, unspecified (principal); R09.81 Nasal congestion; R05 Cough; M79.10 Myalgia, unspecified site; Z91.09 Other allergy status, other than to drugs and biological substances
CPT/HCPCS: 99211; G0463